=== PATIENT | male | born 1985 | race American Indian/Alaskan Native ===

== ENCOUNTER 2021-10-30 19:14 | Emergency (ER) | payer SELFPAY ==
[2021-10-30 19:41] VITALS: BP 152/106
[2021-10-31] MEDS ORDERED: SODIUM CHLORIDE 0.9% 1000 ML 1,000 ML IV ONE (00:14)
[2021-10-31 00:57] LABS: Basophils # (Auto) 0.1 K/mm3 (0.0-0.1); Basophils % (Auto) 0.5 % (0.0-1.8); Eosinophils # (Auto) 0.1 K/mm3 (0.0-0.4); Eosinophils % (Auto) 1.2 % (0.0-4.3); Hemoglobin 15.4 gm/dl (11.8-15.2); Lymphocytes # (Auto) 3.5 K/mm3 (1.2-5.4); Lymphocytes % (Auto) 30.9 % (13.4-35.0); Mean Corpuscular HGB Conc 33 % (32-34); Mean Corpuscular Volume 99 fl (84-94); Monocytes # (Auto) 1.2 K/mm3 (0.0-0.8); Monocytes % (Auto) 10.7 % (0.0-7.3); Platelet Count 228 K/mm3 (140-440); Red Blood Count 4.65 M/mm3 (3.65-5.03); Red Cell Distribution Width 13.7 % (13.2-15.2)
[2021-10-31 00:58] LABS: Bilirubin,Urine NEG (Negative); Blood,Urine SM (Negative); Color,Urine Yellow (Yellow); Protein,Urine <15 mg/dL mg/dL (Negative); Urobilinogen,Urine < 2.0 mg/dL (<2.0)
[2021-10-31 01:04] LABS: Granular Casts,Urine 8 /LPF; Hyaline Casts,Urine 18 /LPF; Mucus,Urine 1+ /HPF
[2021-10-31 01:20] LABS: Alanine Aminotransferase 51 units/L (7-56); Albumin 5.1 g/dL (3.9-5); BUN/Creatinine Ratio 28; Blood Urea Nitrogen 25 mg/dL (9-20); Calcium 10.4 mg/dL (8.4-10.2); Hemolysis Index 6
--- NOTE | 2021-10-31 01:36 | Emergency Department Report ---
ED General Adult HPI - General Chief complaint: Pain General Stated complaint: CRAMPING Time Seen by Provider: 10/31/21 00:13 Source: patient Mode of arrival: Ambulatory Limitations: No Limitations - History of Present Illness Initial comments: Patient is a 36-year-old male who presents for generalized cramping to upper and lower extremities for the past 3 days. Patient states he works in sun all day. States adequate hydration, daily smoker including marijuana, patient states he believes he is dehydrated. There is been no fever or chills. No nausea or vomiting. No dysuria frequency or urgency. There is no shortness of breath no cough no fever or chills. There is no chest pain. There is exacerbated by activity. Symptoms are relieved by nothing tried. - Related Data Allergies Allergy/AdvReac Type Severity Reaction Status Date / Time No Known Allergies Allergy Verified 10/30/21 19:42 ED Review of Systems ROS: Stated complaint: CRAMPING Other details as noted in HPI Constitutional: denies: chills, fever, malaise Eyes: as per HPI ENT: denies: ear pain, throat pain Respiratory: denies: cough, shortness of breath, wheezing Cardiovascular: denies: chest pain, palpitations Endocrine: no symptoms reported Gastrointestinal: denies: abdominal pain, nausea, vomiting, diarrhea Genitourinary: denies: urgency, dysuria, frequency, hematuria Musculoskeletal: other. denies: back pain, joint swelling, arthralgia Skin: denies: rash, lesions Neurological: denies: headache, weakness, numbness, paresthesias, confusion, vertigo Psychiatric: denies: anxiety, depression Hematological/Lymphatic: denies: easy bleeding, easy bruising ED Physical Exam - General Limitations: No Limitations General appearance: alert, in no apparent distress - Head Head exam: Present: normocephalic, normal inspection - Eye Eye exam: Present: normal appearance, EOMI Pupils: Present: normal accommodation - ENT ENT exam: Present: mucous membranes moist - Neck Neck exam: Present: normal inspection, full ROM. Absent: tenderness, lymphadenopathy - Respiratory Respiratory exam: Present: normal lung sounds bilaterally. Absent: respiratory distress, wheezes, stridor, chest wall tenderness - Cardiovascular Cardiovascular Exam: Present: regular rate, normal rhythm, normal heart sounds. Absent: systolic murmur, diastolic murmur, rubs, gallop - GI/Abdominal GI/Abdominal exam: Present: soft, normal bowel sounds. Absent: distended, tenderness - Rectal Rectal exam: Present: deferred - Extremities Exam Extremities exam: Present: normal inspection, full ROM, normal capillary refill. Absent: tenderness, pedal edema, joint swelling, calf tenderness - Back Exam Back exam: Present: normal inspection, full ROM. Absent: tenderness, CVA tenderness (R), CVA tenderness (L), muscle spasm - Neurological Exam Neurological exam: Present: alert, oriented X3, CN II-XII intact, normal gait, reflexes normal. Absent: motor sensory deficit - Expanded Neurological Exam Expanded Patient oriented to: Present: person, place, time Speech: Present: fluid speech Motor strength exam: RUE: 5, LUE: 5, RLE: 5, LLE: 5 DTR: ankle (R): 1+, ankle (L): 1+ Best Eye Response ([place]): (4) open spontaneously Best Motor Response ([place]): (6) obeys commands Best Verbal Response ([place]): (5) oriented Ivan Total: 15 - Psychiatric Psychiatric exam: Present: normal affect, normal mood - Skin Skin exam: Present: warm, dry, intact, normal color. Absent: rash ED Course Vital Signs 10/30/21 19:39 Temperature 99.0 F Pulse Rate 86 Respiratory 18 Rate Blood Pressure 152/106 O2 Sat by Pulse 100 Oximetry ED Medical Decision Making - Lab Data Result diagrams: 10/31/21 00:20 10/31/21 00:20 Labs 10/31/21 10/31/21 10/31/21 00:20 00:20 Unknown WBC 11.2 H RBC 4.65 Hgb 15.4 H Hct 46.0 H MCV 99 H MCH 33 H MCHC 33 RDW 13.7 Plt Count 228 Lymph % (Auto) 30.9 [place] % (Auto) 10.7 H Eos % (Auto) 1.2 Baso % (Auto) 0.5 Lymph # (Auto) 3.5 [place] # (Auto) 1.2 H Eos # (Auto) 0.1 Baso # (Auto) 0.1 Seg Neutrophils % 56.7 Seg Neutrophils # 6.4 Sodium 138 Potassium 4.7 Chloride 102.8 Carbon Dioxide 21 L Anion Gap 19 BUN 25 H Creatinine 0.9 Estimated GFR > 60 BUN/Creatinine Ratio 28 Glucose 86 Calcium 10.4 H Total Bilirubin 0.40 AST 163 H ALT 51 Alkaline Phosphatase 96 Total Creatine Kinase 8548 H Total Protein 8.7 H Albumin 5.1 H Albumin/Globulin Ratio 1.4 Urine Color Yellow Urine Turbidity Clear Urine pH 5.0 Ur Specific [place] 1.023 Urine Protein <15 mg/dl Urine Glucose (UA) Neg Urine Ketones Tr Urine Blood Sm Urine Nitrite Neg Urine Bilirubin Neg Urine Urobilinogen < 2.0 Ur Leukocyte Esterase Neg Urine WBC (Auto) 7.0 H Urine RBC (Auto) 1.0 U Epithel Cells (Auto) 1.0 Hyaline Casts 18 Granular Casts 8 Urine Mucus 1+ - Medical Decision Making Symptoms are improved at this time cramps are resolved. Diagnosis mild dehydration. Discussed same with patient advised to hydrate decrease EtOH and substance. Follow-up with primary care doctor in 2 to 3 days. Patient verbalized agreement understanding with discharge plan. Patient DC'd home in stable condition at this time. Critical care attestation.: If time is entered above; I have spent that time in minutes in the direct care of this critically ill patient, excluding procedure time. ED Disposition Clinical Impression: Mild dehydration Disposition: 01 HOME / SELF CARE / HOMELESS Is pt being admited?: No Does the pt Need Aspirin: No Condition: Stable Instructions: Dehydration, Adult, [id number], Rehydration, Adult Additional Instructions: Hydrate as directed, follow up with your doctor in 2 to 3 days. Return to emergency department should symptoms worsen. Referrals: SAMMY TRIPATHI MD [Staff Physician] - 3-5 Days Forms: Work/School Release Form(ED) Time of Disposition: 01:44
== END 2021-10-31 02:03 | disposition home or self-care (01) ==
LOC: ED 19:14
DX: E86.0 Dehydration (principal)
CPT/HCPCS: 36415; 80053; 81001; 82550; 85025; 96360; 99283; J7030